=== PATIENT | female | born 1945 | race Two or more races ===

== ENCOUNTER → 2024-06-08 | Outpatient (CLI) | payer OTHER, SELFPAY | END | disposition home or self-care (01) | LOC: SLDO 12:07 | PROVIDERS: Referring Provider Family Medicine; Visit Provider Family Medicine | DX: N39.0 Urinary tract infection, site not specified (principal) | CPT/HCPCS: 87086 ==

== ENCOUNTER → 2024-12-25 | Outpatient (CLI) | payer OTHER, SELFPAY | END | disposition home or self-care (01) | LOC: SLDO 16:03 | PROVIDERS: PCP Family Medicine; Referring Provider Family Medicine; Visit Provider Family Medicine | DX: N39.0 Urinary tract infection, site not specified (principal) | CPT/HCPCS: 87086 ==

== ENCOUNTER → 2025-02-01 | Outpatient (CLI) | payer OTHER, SELFPAY | END | disposition home or self-care (01) | LOC: SLDO 15:57 | PROVIDERS: PCP Family Medicine; Referring Provider Family Medicine; Visit Provider Family Medicine | DX: N39.0 Urinary tract infection, site not specified (principal) | CPT/HCPCS: 87086 ==

== ENCOUNTER → 2025-02-06 | Outpatient (CLI) | payer OTHER, SELFPAY ==
--- NOTE | 2025-02-06 09:52 | XR_ITS ---
Examination: Lumbar spine 3 views Technique one AP lateral coned lateral lower lumbar spine 3 views Date and time: February 06, 2025, 10:00 AM, comparison April 07, 2023. INDICATIONS: Low back pain radiating down the legs beginning 4 weeks ago, lumbar spine surgery 2012. FINDINGS: Moderate osteopenia. Lumbar levoscoliosis 15 degrees. Laminectomies L4, L5 Advanced degenerative disc disease lower 4 lumbar levels No lumbar fracture IMPRESSION: Advanced degenerative disc disease lower 4 lumbar levels
== END | disposition home or self-care (01) ==
PROVIDERS: PCP Family Medicine; Referring Provider Orthopaedic Surgery; Visit Provider Orthopaedic Surgery
DX: M51.360 Other intervertebral disc degeneration, lumbar region with discogenic back pain only (principal)
CPT/HCPCS: 72100

== ENCOUNTER → 2025-03-15 | Outpatient (CLI) | payer OTHER, SELFPAY ==
--- NOTE | 2025-03-15 | XR_ITS ---
EXAMINATION: Lumbar spine 7 views TECHNIQUE: AP, lateral, coned lateral lower lumbar spine, standing lateral flexion, standing lateral extension, RPO LPO lumbar spine 7 views Date and time: March 15, 2025, 1113 hours, comparison 02/06/2025 INDICATIONS: Low back pain for months FINDINGS: Lumbar levoscoliosis 12 degrees Prominent osteopenia Diffuse advanced facet arthropathy Diffuse lumbar disc narrowing Prominent lumbar spondylosis Markedly reduced range of motion between flexion and extension, minimal anterolisthesis L4 on L5 IMPRESSION: Advanced degenerative disc disease lower 4 lumbar levels with significant spinal stenosis
== END | disposition home or self-care (01) ==
LOC: CDIM 10:46
PROVIDERS: PCP Family Medicine; Referring Provider Physical Medicine & Rehabilitation Pain Medicine; Visit Provider Physical Medicine & Rehabilitation Pain Medicine
DX: M51.360 Other intervertebral disc degeneration, lumbar region with discogenic back pain only (principal)
CPT/HCPCS: 72114

== ENCOUNTER → 2025-03-20 | Outpatient (CLI) | payer OTHER, SELFPAY | END | disposition home or self-care (01) | LOC: SLDO 15:04 | PROVIDERS: PCP Family Medicine; Referring Provider Family Medicine; Visit Provider Family Medicine | DX: N39.0 Urinary tract infection, site not specified (principal) | CPT/HCPCS: 87086 ==

== ENCOUNTER 2025-04-21 11:54 | Emergency (ER) | payer OTHER, SELFPAY ==
--- NOTE | 2025-04-21 11:56 | XR_ITS ---
Examination: CT thoracic spine, without contrast. 2-D sagittal reconstructions. 2-D coronal reconstructions. 3-D reconstructions. Date and time of exam: April 21, 2025, 1305 hours INDICATIONS: Back pain and leg weakness onset today CTDI: vol (mGy): 35.9 DLP: (mGycm): 1134 Technique: Multiple 1.25 mm axial sections of the thoracic spine without intravenous contrast have been obtained. 2-D sagittal and coronal reconstructions have been obtained. 3-D reconstructions have been obtained. Low dose protocols were performed. One or more of the following dose reduction techniques were used; automated exposure control, adjustment of the mA and/or KV according to patient size, use of iterative reconstruction technique. Findings: Adequate alignment midthoracic vertebral bodies on the lateral view Moderate thoracic spondylosis Mild to moderate diffuse thoracic disc narrowing No thoracic fracture Axial images demonstrate no focal thoracic disc protrusion impinging upon the thoracic cord IMPRESSION: Mild to moderate diffuse thoracic degenerative disc disease No thoracic fracture No focal thoracic disc protrusion noted however, MRI thoracic spine post intravenous contrast would best exclude thoracic cord compression, as clinically warranted
--- NOTE | 2025-04-21 11:56 | XR_ITS ---
Examination: CT lumbar spine, without contrast. 2-D sagittal reconstructions. 2-D coronal reconstructions. 3-D reconstructions. Date and time of exam: April 21, 2025, 1305 hours, comparison May 12, 2023 INDICATIONS: Onset bilateral leg weakness today CTDI: vol (mGy): 37.5 DLP: (mGycm): 1233 Technique: Multiple 1.25 mm axial sections of the lumbar spine have been obtained. 2-D sagittal and coronal reconstructions have been obtained. 3-D reconstructions have been obtained. Low dose protocols were performed. One or more of the following dose reduction techniques were used; automated exposure control, adjustment of the mA and/or KV according to patient size, use of iterative reconstruction technique. Findings: Interval extensive transpedicular lumbar stabilization L1-L5 with satisfactory alignment Laminectomies L4, L5 Air densities in the soft tissue posterior to L2-L4 and air densities in the left thecal sac L3-L4, likely postoperative change Very extensive artifacts from the orthopedic hardware Subacute fractures involving the right first sacral wing, axial image 148 and probably left sacral wing axial image 155 Fractures involving the transverse process L5 on the left axial image 139 Fracture lines also through the L3 vertebral body sagittal image 73 Postoperative fluid collection posterior to L4 and L5 IMPRESSION: Interval extensive transpedicular lumbar stabilization L1-L5 Postoperative air in the soft tissue and in the thecal sac Severe artifact from the orthopedic hardware largely obscures the axial images Subacute fractures involving the right and left first sacral wings and transverse process L5, unclear etiology, fracture line also through the L3 vertebral body, clinical correlation advised Recommend referral back to the surgeon and hospital where the patient's extensive surgical procedure was performed
--- NOTE | 2025-04-21 11:58 | PD.EDADULT ---
ED General RME/HPI General Chief complaint: Extremity Injury, Lower Stated complaint: MICHELLE LEG PAIN Time Seen by Provider: 04/21/25 11:55 Arrival date/time: 04/21/25 11:54 CC: Bilateral lower extremity weakness HPI patient presents to the ER via EMS who reports stable vital signs. Patient states she has fallen twice in the last week after being discharged home from a mid back surgery for a bad back . Patient states my made me come , patient states when she attempts to walk initial fall was left leg giving out and 2 days ago the both legs gave out . Patient complains of persistent foot neuropathies that are unchanged 3 at rest and 7 when walking. Patient denies loss of consciousness altered level of consciousness headache blurred vision seeing spots difficulty breathing. Related Data Home Medications ?Medication ?Instructions ?Recorded ?Confirmed Cetirizine * (ZYRTEC *) 5 mg PO BID #0 tabs 11/05/15 albuterol sulfate 90 mcg/actuation 2 puff inhalation Q6HR PRN 11/05/15 aerosol inhaler (Proventil HFA) SHORTNESS OF BREATH #0 inhalations celecoxib 50 mg capsule (Celebrex) 50 mg PO HS #0 caps 11/05/15 estradiol 1 mg tablet (Estrace) 1 mg PO QDAY #0 tabs 11/05/15 omeprazole 20 mg capsule,delayed 20 mg PO QDAY ##0 11/05/15 release Allergies Allergy/AdvReac Type Severity Reaction Status Date / Time Sulfa (Sulfonamide Allergy Severe Rash Verified 04/21/25 12:07 Antibiotics) strawberry Allergy Intermediate Swelling Verified 04/21/25 12:07 venom-wasp Allergy Unknown Verified 04/21/25 12:07 Bee Stings Allergy Severe Swelling Uncoded 11/06/15 13:55 AVOCADO, WATERMELON Allergy Unknown Uncoded 01/11/03 01:30 Review of Systems Review of Systems Narrative Review of Systems: GEN: No fever, no chills, no weight loss EYES: No discharge, no visual changes, no pain HEENT: No ear pain, no congestion, no sore throat PULM: No shortness of breath, no cough, no congestion CV: No chest pain, no dyspnea on exertion, no palpitations GI: No nausea, no vomiting, no diarrhea, no pain, no constipation : No frequency, no urgency, no dysuria MUSC/SKEL: No joint pain, no back pain, + bilat lower extremity weakness SKIN: No rash PSYCH: No hallucinations, no depression HEME/LYMPH: No easy bleeding or bruising tendencies NEURO: No weakness, no headache ED Exam Narrative Physical exam: [General: Not in any acute distress Head normocephalic HEENT: Eyes pupils are PERRLA EOMs are intact mouth pink moist membranes uvula is midline swallow symmetrical phonation is normal all of the subsystems of HEENT are within acceptable limits Neck is supple nontender Chest equal chest rise nontender to palpation Respiratory: Clear to auscultation no wheezes crackles or rubs CV: Rate rhythm is regular no murmurs rubs or clicks Abdomen is soft nontender no masses positive bowel sounds all 4 quadrants Back: No CVA tenderness no spinous process tenderness from cervical spine thoracic and lumbar spine Skin: Intact no petechiae rash induration ulceration or crepitus Extremities: Moving upper extremities without complication. Left lower extremity: Unable to do a straight leg raise or get it off the bed, strength is 2/5, right lower extremity strength is 4/5 all able to straight leg raise off the bed. Toes and ankles flex and extend in both lower extremities. Cap refill less than 2 seconds. Neuro: Awake alert oriented x3 Glascow coma 15 no focal deficits] Course Course Course Narrative: Given the patient's left leg weakness, inability to walk after discharge from the [facility] and the reading of the CT this patient needs to be sent back to the surgeon for reevaluation. Surgeons name is Dr. Tapia Transfer nurse informs me at [address] José has no privileges at any of the [facility] and the hospital of the surgery was performed as an outpatient services center. Patient case was then discussed with Dr. Desouza, resident neurosurgeon at [facility] [[email or web address] Who is waiting images to be pushed over and discussed with his attending Dr. Rosa. Discussed the patient again with Dr. Desouza at 1627, patient accepted by Dr. Kathleen. Quality Measures none Orders Category Date Time Status Cuevas [Urinary Catheter] QS Care 04/21/25 16:53 Completed Saline [Insert IV] NOW Care 04/21/25 13:51 Completed Referral - Service Employee Stat Cons 04/21/25 13:[address] lumbar spine wo con Stat Exams 04/21/25 11:[address] thoracic spine wo con Stat Exams 04/21/25 11:56 Completed CBC Stat Lab 04/21/25 13:25 Completed CMP [Comprehensive Metabolic Panel] Stat Lab 04/21/25 13:25 Completed PT [Prothrombin Time with INR] Stat Lab 04/21/25 13:25 Completed PTT [Partial Thromboplastin Time] Stat Lab 04/21/25 13:25 Completed Urinalysis Stat Lab 04/21/25 13:00 Completed Acetaminophen Tab [Tylenol ES Tab] Med 04/22/25 08:09 Discontinued 1,000 mg PO X1 ONE Morphine* Inj Med 04/22/25 07:54 Discontinued 4 mg IV X1 ONE Ondansetron Inj [Zofran Inj] Med 04/22/25 07:54 Discontinued 4 mg IVP X1 ONE POTASSIUM CHL 10 mEq IVPB [Kcl Ivpb] Med 04/21/25 13:52 Discontinued 10 meq in 100 ml IV Q1H Sodium Chloride 0.9% 1000 ml [Ns] 1,000 ml Med 04/21/25 13:52 Discontinued IV 125 mls/hr Sodium Chloride 0.9% 500 ml [Ns] 500 ml Med 04/21/25 13:52 Discontinued IV 999 mls/hr Late Tray Request Routine Oth 04/21/25 17:46 Active Vital Signs Vital signs: Vital Signs Temperature 98.8 F 04/21/25 11:59 Pulse Rate 116 H 04/21/25 11:59 Respiratory Rate 18 04/21/25 11:59 Blood Pressure 138/76 H 04/21/25 11:59 Pulse Oximetry (%) 99 04/21/25 11:59 Oxygen Delivery Method Room Air 04/21/25 11:59 Discharge Plan Plan Patient Disposition: [facility] Pt Being Transferred to: [facility] [[email or web address]] Service Needed for Transfer: Neurosurgery Patient condition on transfer: Stable Prescriptions/Referrals Prescriptions/Med Rec: No Action albuterol sulfate [Proventil HFA] 6.7 GM HFA aerosol inhaler 2 puff Inhalation Q6HR PRN (Reason: SHORTNESS OF BREATH) Qty: 0 celecoxib [Celebrex] 50 MG capsule 50 mg PO HS Qty: 0 Cetirizine * (ZYRTEC *) 5 MG tablet 5 mg PO BID Qty: 0 estradiol [Estrace] 1 MG tablet 1 mg PO QDAY Qty: 0 omeprazole 20 MG capsule,delayed release(DR/EC) 20 mg PO QDAY Qty: 0 Referrals: Elio Fajardo MD [Primary Care Provider, Family Practice] - In 1 week Problem List Clinical Impression: Fall, Left leg weakness, Hyponatremia, Hypokalemia Patient/Caregiver Discharge Instructions Print Language: Ukrainian Stand Alone Forms: Teodora Award Info., Patient Portal Info Letter MDM Clinical Information Provided by: patient and EMS Medical Records reviewed [facility] and EMS Meds/Rx considered, not ordered None Labs/Rad/Tests considered, not ordered None Chronic Illness/Social Conditions Explain: Recent back surgery on April 10 in [place]. Labs Labs: interpreted by [facility] Lab(s) Interpretation(s): CBC shows no leukocytosis H&H of 9.7 and 28.5 respectively platelets elevated at 524. Coags show PT 11.9 INR 1.1 PTT of 37.3 Sodium at 129 potassium 3.0 BUN at 8 creatinine 0.4 glucose of 142 no other transaminitis T. bili elevation or renal impairment. Imaging Imaging interpretation: interpreted by [facility] Imaging Interpretation(s): CT of the lumbar spine shows subacute fractures involving the right and left first sacral wings and transverse process of L5 also fracture line in the L3 vertebral body also extensive transpedicular lumbar stabilization sensation L1-L5 along with severe artifact. Thoracic shows mild to moderate diffuse thoracic degenerative disc disease. Medication Administration(s) Medication Administration History Discontinued Medications Acetaminophen (Acetaminophen 500 Mg Tablet) 1,000 mg PO X1 ONE Stop: 04/22/25 08:10 Last Admin: 04/22/25 08:13 Dose: 1,000 mg Documented By: BY Sodium Chloride (Ns) 1,000 mls @ 125 mls/hr IV .Q8H REFUGIO Stop: 05/21/25 13:51 Last Admin: 04/22/25 06:53 Dose: 125 mls/hr Documented By: Infusion: 04/22/25 06:52 Dose: Infused Documented By: Admin: 04/21/25 22:34 Dose: 125 mls/hr Documented By: Infusion: 04/21/25 22:32 Dose: Infused Documented By: Admin: 04/21/25 14:14 Dose: 125 mls/hr Documented By: EF Sodium Chloride (Ns) 500 mls @ 999 mls/hr IV .Q31M ONE Stop: 04/21/25 14:22 Last Infusion: 04/21/25 15:00 Dose: Infused Documented By: Admin: 04/21/25 14:13 Dose: 999 mls/hr Documented By: EF Potassium Chloride (Kcl Ivpb) 10 meq in 100 mls @ 100 mls/hr IV Q1H REFUGIO Stop: 04/21/25 15:51 Last Infusion: 04/21/25 16:28 Dose: Infused Documented By: Admin: 04/21/25 15:23 Dose: 100 mls/hr Documented By: Infusion: 04/21/25 15:15 Dose: Infused Documented By: Admin: 04/21/25 14:15 Dose: 100 mls/hr Documented By: EF Morphine Sulfate (Morphine Sulf Inj 4 Mg/Ml Vial) 4 mg IV X1 ONE Stop: 04/22/25 07:55 Last Admin: 04/22/25 08:08 Dose: Not Given Documented By: BY Non-Admin Reason: Patient Refused Ondansetron HCl (Ondansetron Inj 2 Mg/Ml Inj 2 Ml) 4 mg IVP X1 ONE; Protocol Stop: 04/22/25 07:55 Last Admin: 04/22/25 08:08 Dose: Not Given Documented By: BY Non-Admin Reason: Patient Refused
[2025-04-21 11:59] VITALS: BP 138/76; PULSE 116; RESP 18; TEMP 37.1; O2SAT 99
[2025-04-21 12:01] VITALS: PULSE 100; RESP 18; O2SAT 96; BMI 29.0
[2025-04-21 13:21] VITALS: BP 151/70; PULSE 117; RESP 18; TEMP 36.7; O2SAT 98
[2025-04-21 13:43] LABS: Basophils # (Auto) 0.0 Thou/mm3 (0.0-0.2); Basophils % (Auto) 0 % (0-2.5); Eosinophils # (Auto) 0.1 Thou/mm3 (0.0-0.5); Eosinophils % (Auto) 1 % (0-10); Hematocrit 28.5 % (36.0-46.0); Hemoglobin 9.7 g/dL (12.0-16.0); Immature Granulocytes Auto 0.10 Thou/mm3 (0.00-0.00); Lymphocytes # (Auto) 0.9 Thou/mm3 (1.0-4.8); Lymphocytes % (Auto) 8 % (10-50); Mean Corpuscular HGB Conc 34.0 g/dl (31.0-37.0); Mean Corpuscular Hemoglobin 28.3 pg (25.0-35.0); Mean Corpuscular Volume 83 fL (80-100); Monocytes # (Auto) 1.3 Thou/mm3 (0.0-0.8); Monocytes % (Auto) 13 % (0-12); Neutrophils # (Auto) 8.3 Thou/mm3 (1.8-7.7); Neutrophils % (Auto) 77 % (37-80); Nucleated Red Blood Cell # 0.00 Thou/mm3 (0.00-0.00); Nucleated Red Blood Cell % 0 /100 WBC (0); Platelet Count 524 Thou/mm3 (140-440); RDW Standard Deviation 41.6 fL (36.4-46.3); Red Blood Count 3.43 Miln/mm3 (4.00-5.20); White Blood Count 10.7 Thou/mm3 (3.6-11.0)
[2025-04-21 13:47] LABS: Alanine Aminotransferase 25 U/L (10-49); Albumin, Serum 4.0 gm/dL (3.4-4.8); Albumin/Globulin Ratio 2.2 (1.2-2.2); Alkaline Phosphatase 120 U/L (46-116); Anion Gap 10 (7-16); Aspartate Amino Transferase 25 U/L (0-34); BUN/Creatinine Ratio 20 Ratio (12-20); Bilirubin,Total 0.4 mg/dL (0.3-1.2); Blood Urea Nitrogen 8 mg/dL (9-23); Calcium 8.9 mg/dL (8.3-10.6); Calcium (Corrected) 8.9 mg/dL (8.5-10.1); Carbon Dioxide 29.5 mMol/L (20.0-31.0); Chloride 90 mMol/L (98-107); Creatinine (Component) 0.4 mg/dL (0.6-1.3); Estimated Creatinine Clearance 90.6 mL/min (>60); Globulin 1.8 gm/dL (2.3-3.5); Glucose 142 mg/dL (74-106); Osmolality,Calculated 259 (275-295); Potassium 3.0 mMol/L (3.4-5.1); Sodium 129 mMol/L (136-145); Total Protein 5.8 gm/dL (5.7-8.2); eGFR > 60 See Note
[2025-04-21 13:50] LABS: INR 1.1 (0.9-1.3); Partial Thromboplastin Time 37.3 Seconds (22.0-36.0); Prothrombin Time 11.9 Seconds (9.0-12.2)
[2025-04-21 13:52] LABS: Collection Type, Urine Clean Catch
[2025-04-21 14:03] LABS: Bilirubin,Urine Negative (Negative); Blood,Urine Negative (Negative); Clarity,Urine Clear (Clear/Hazy); Color,Urine Yellow (Lt Yel-Yel); Glucose, Urine Negative (Negative); Ketones,Urine 2+ (Negative); Leukocyte Esterase,Urine Negative (Negative); Nitrite,Urine Negative (Negative); PH,Urine 6.5 (5.0-7.0); Protein,Urine Trace (Neg - Trace); RBC,Urine 3 /hpf (0-3); Specific Gravity,Urine 1.019 (1.001-1.035); Squamous Epithelial Cell,Urine 3 /hpf (0-5); Urobilinogen,Urine Negative mg/dL (0.0-1.0); WBC,Urine 1 /hpf (0-5)
[2025-04-21] MEDS: SODIUM CHLORIDE 0.9% 500 ML 500 ML 999 ML IV (14:13)
[2025-04-21] MEDS: SODIUM CHLORIDE 0.9% 1000 ML 1,000 ML 125 ML IV ×2 (14:14→22:34)
[2025-04-21] MEDS: POTASSIUM CHL 10 mEq IVPB 10 MEQ/100 ML BAG 100 MEQ IV ×2 (14:15→15:23)
--- NOTE | 2025-04-21 14:20 | PC.CC ---
Addendum entered by Frederick Burton RN 04/21/25 18:18: 1800: transport set for 2100 due weather and emergencies. air transport not available due to weather. ED Tracker updated. 1750: Transfer packet w/ CDX1 given to ROMÁN Healy. 1658: received call from Nimesh w/ [facility] with bed information. [address] [place], [place] [id number] [address]. [facility] room 1514. Call report [phone] Addendum entered by Frederick Burton RN 04/21/25 16:53: 1647: called [facility], spoke to Mark, he confirmed acceptance and provided accepting information. Bed is pending. 1643: Edgardo sunshine Nix transferred call to bedside nurse from [facility]. I called Lex to f/u on coversation, he stated pt has been accepted by Dr. Clark. 1509: received call from Claudette requesting to speak to Lex for a peer to peer w/ Dr. Issa, call transferred to Lex Addendum entered by Frederick Burton RN 04/21/25 14:55: 1445: called [facility], spoke to Claudette. Transfer request initiated. She will call back once clinicals and images are reviewed. She did inform me that they are triaging transfer request on a case by case basis. Addendum entered by Frederick Burton RN 04/21/25 14:45: 1439: sent clinicals and images to [facility]. 1436: received call back from Avelina with [facility], she stated per DAPHNEY Parr, send pt to [facility]. Dr. Clark neurosurgeon will accept. 1434: Update given to DAPHNEY Sampson 1432: called Rhonda CHUNG, left 1427: Called [facility] copy camera operator who connected me to the house sunshine Rizvi. Asked if Neurosurgery was oncall, he stated no neurosurgeon oncall. Called [facility] back, spoke to Marquita, informed her of the situation. She stated she will reach out to DAPHNEY Parr. Addendum entered by Frederick Burton RN 04/21/25 14:25: 1415: Avelina call me back, she stated per DAPHNEY Parr, pt's condition can be managed at [facility]. Clinicals sent to [facility] and [facility] [place]. Attempted several times to call [facility] transfer center, received recording and unable to leave message d/t mailbox being full. Original Note: received transfer request by DAPHNEY sampson for Neurosurgery for multiple fx to spine s/p lumbar stabilization coty w/ Dr. Tapia at [facility]. I called [facility], spoke to Avelina DUBON provided clinical information. She provided Dr. Tapia office number [phone]. I informed her this is a request to transfer, she stated they are a surgical hospital only. They do not have an emergency room. She stated she will reach out to Dr. Tapia's PA Matthieu Parr.
--- NOTE | 2025-04-21 16:31 | PC.NURSE ---
CALL RECEIVED FROM [facility], SPOKE WITH SAMIR WHO STATES PT IS ACCEPTED. WILL CALL BACK WHEN HAS ROOM ASSIGNMENT
[2025-04-21 16:58] VITALS: BP 145/64; PULSE 110; RESP 18; TEMP 36.3; O2SAT 99
[2025-04-21 20:15] VITALS: BP 135/64; PULSE 109; RESP 18; TEMP 36.8; O2SAT 95
[2025-04-21 22:33] VITALS: BP 122/62; PULSE 97; RESP 18; TEMP 36.7; O2SAT 97
[2025-04-22 02:08] VITALS: BP 133/57; PULSE 91; RESP 16; TEMP 36.9; O2SAT 95
[2025-04-22 03:46] VITALS: BP 150/69; PULSE 106; RESP 18; TEMP 36.9; O2SAT 97
[2025-04-22 05:27] VITALS: BP 134/61; PULSE 95; RESP 18; O2SAT 99
[2025-04-22 06:09] VITALS: BP 141/58; PULSE 104; RESP 16; TEMP 37; O2SAT 99
[2025-04-22] MEDS: SODIUM CHLORIDE 0.9% 1000 ML 1,000 ML 125 ML IV (06:53)
[2025-04-22 07:46] VITALS: BP 139/71; PULSE 97; RESP 16; TEMP 36.6; O2SAT 97
[2025-04-22] MEDS: ACETAMINOPHEN 500 MG TABLET 1000 MG PO (08:13)
[2025-04-22 09:05] VITALS: BP 152/65; PULSE 98; RESP 16; O2SAT 95
--- NOTE | 2025-04-22 09:06 | PC.NURSE ---
rpeort given to emt for transport, patient is alert breathing is normal and unlabored no noted s.s of distress
== END 2025-04-22 09:16 | disposition short-term general hospital (02) ==
PROVIDERS: Registered Nurse General Practice; Emergency Provider Emergency Medicine; PCP Family Medicine
DX: E87.1 Hypo-osmolality and hyponatremia (principal); E87.6 Hypokalemia; R53.1 Weakness
CPT/HCPCS: 36415; 51702; 72128; 72131; 80053; 81001; 85025; 85610; 85730; 96361; 96365; 96366; 99284; A4314; J3480; J7030; J7999; A9270